=== PATIENT | female | born 1995 | race Caucasian/White ===

== ENCOUNTER 2022-12-25 09:09 | Emergency (ER) | payer OTHER, SELFPAY ==
--- NOTE | 2022-12-25 09:27 | ED.SKABFB ---
HPI - Skin/Abscess/Foreign Bdy General Chief complaint: Skin/Abscess/Foreign Body Stated complaint: Poision Angelika/[place] Time Seen by Provider: 12/25/22 09:24 Source: patient and RN notes reviewed History of Present Illness HPI narrative: 27 yo F presents to urgent care with complaints of an itchy rash. Pt states she was on a float trip this past weekend where she believes she came in contact with poison angelika or something of the like. Pt's rash started on Thursday on her right upper thigh and it continues to spread. Pt states she has tried OTC poison angelika meds, calamine lotion, and castor oil without relief. Denies any fevers, chills, vomiting, or SOB. Related Data Home Medications Medication Instructions Recorded Confirmed ascorbic acid (vitamin C) 1,000 mg 1 g PO DAILY 03/02/20 tablet cholecalciferol (vitamin D3) 125 125 mcg PO DAILY 03/02/20 mcg (5,000 unit) capsule magnesium oxide 400 mg PO DAILY 03/02/20 multivitamin with minerals 1 tablet PO DAILY 03/02/20 (Hair,Skin and Nails tablet) turmeric (bulk) 95 % powder ea miscellaneous 03/02/20 (Curcumin) zinc 50 mg tablet 50 mg PO DAILY 03/02/20 Allergies Allergy/AdvReac Type Severity Reaction Status Date / Time No Known Allergies Allergy Verified 12/25/22 09:30 Review of Systems Review of Systems: CONSTITUTIONAL: Denies fever, chills, or sweats. EYES: Denies visual changes, redness, or discharge. ENT: Denies otalgia and sore throat CARDIOVASCULAR: Denies chest pain, palpitations, or edema. RESPIRATORY: Denies cough or dyspnea. GASTROINTESTINAL: Denies abdominal pain, nausea, vomiting, or diarrhea. GENITOURINARY: Denies dysuria or hematuria. SKIN: itchy rash MUSCULOSKELETAL: Denies back pain, joint pain, or myalgia. NEUROLOGIC: Denies headache, numbness, or weakness. Pertinent positives per HPI. [facility] Surgical History Surgical History (Updated 03/02/20 @ 08:30 by Bishop Horvath CMA) Delivery by section Social History Social History (Updated 03/02/20 @ 08:31 by Bishop Horvath CMA) Smoking status: Never smoker Alcohol intake: never Substance use: never Comments At the time of my signature, I reviewed and agree with the nursing past medical, surgical, social, and family history. There is no relevant family history pertinent to the patient complaint. Exam Narrative: GENERAL: This is a well-nourished, well-developed patient, in no apparent distress. HEAD: normocephalic, atraumatic. EYES: Sclera clear/white. Vision is grossly intact. EARS: External ears normal, auditory canals clear and without drainage. Hearing grossly intact. NOSE: External nose normal with no obvious nasal discharge, nares without redness, no rhinorrhea. THROAT: Mucous membranes moist, posterior pharynx clear. NECK: Neck supple, non-tender without lymphadenopathy, masses or thyromegaly. CARDIOVASCULAR: Regular rate and rhythm without murmurs, gallops, or rubs. RESPIRATORY: Clear to auscultation. Breath sounds equal bilaterally. No wheezes, rales, or rhonchi. GASTROINTESTINAL: Abdomen soft, non-tender, nondistended. Bowel sounds are active. No hepato-splenomegaly, or palpable masses. No guarding. SKIN: erythremic patches and clusters of papules covering right lateral thigh with various, single, papules to other extremities. NEURO: awake, alert, and oriented to person, place and time. There were no obvious focal neurologic abnormalities. EXTREMITIES: No clubbing, cyanosis, or edema. No joint tenderness, effusion, or edema noted. BACK: Nontender without deformity or crepitus. No flank tenderness. Course Course Level of Care: Express Care Visit Vital Signs Vital signs: Reviewed MDM - Skin/Abscess/Foreign Bdy MDM Narrative Medical decision making narrative: Prevention is always better than treatment. Learn to identify poison angelika, oak, and sumac and avoid it. Wear long sleeves, long pants, shoes, and socks. If you touched the plant, try to rosales
[2022-12-25 09:28] VITALS: BP 112/62; PULSE 70; RESP 16; TEMP 37.1; O2SAT 100
== END 2022-12-25 09:42 | disposition home or self-care (01) ==
PROVIDERS: Emergency Provider Nurse Practitioner Family; PCP Family Medicine; Referring Provider Nurse Practitioner Family
DX: L25.9 Unspecified contact dermatitis, unspecified cause (principal)
CPT/HCPCS: 99203; G0463

== ENCOUNTER 2023-11-29 10:48 | Emergency (ER) | payer OTHER, SELFPAY ==
--- NOTE | ~2023-11-29 | XR_ITS ---
EXAMINATION: XR shoulder RT min 2V DATE: 11/29/2023 11:32 INDICATION: Right shoulder pain. Injury. TECHNIQUE: 4 views of right shoulder were obtained. COMPARISON: None. FINDINGS: Bone alignment is normal. No fracture. Glenohumeral joint is normal. There is mild acromioc lavicular joint osteoarthritis. IMPRESSION: 1. Mild right acromioclavicular joint osteoarthritis. Reviewed, dictated and finalized at location E.
[2023-11-29 11:05] VITALS: BP 107/71; PULSE 76; RESP 18; TEMP 36.6; O2SAT 99
--- NOTE | 2023-11-29 11:50 | ED.UPPEXIN ---
HPI - Extremity Injury (Upper) General Chief Complaint: Extremity Injury, Upper Stated Complaint: Right Shoulder Injury Time Seen by Provider: 11/29/23 11:20 Source: patient, family, RN notes reviewed and old records reviewed Mode of arrival: ambulatory Limitations: no limitations History of Present Illness HPI narrative: 28 year old female presents [facility] with complaints of injury to her right shoulder yesterday evening when she was on a slip and slide and slid into someone with her shoulder. Patient reports that she awoke last night with pain to her right shoulder and anterior aspect of shoulder along collar bone and reports that it feels swollen. Patient reports that she is right hand dominant. Patient describes pain as pressure and burning rates pain as 5/10, has been taking Ibuprofen for her discomfort. 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 MD complaint: injury to: right and shoulder Onset (ago): day(s) (last evening around 2029) Handedness: right Place: outdoors Severity scale (1-10): 5 Treatments prior to arrival: NSAIDS Related Data Allergies Allergy/AdvReac Type Severity Reaction Status Date / Time No Known Allergies Allergy Verified 11/29/23 11:11 Review of Systems Review of Systems: CONSTITUTIONAL: Denies fever, chills, or sweats. EYES: Denies visual changes, redness, or discharge. ENT: Denies rhinorrhea, congestion, sore throat, or otalgia. CARDIOVASCULAR: Denies chest pain, palpitations, or edema. RESPIRATORY: Denies cough or dyspnea. GASTROINTESTINAL: Denies abdominal pain, nausea, vomiting, or diarrhea. GENITOURINARY: Denies dysuria or hematuria. SKIN: Denies rash or itching. MUSCULOSKELETAL: Denies back pain,positive for right shoulder pain and pain along right clavicle area , or myalgia. NEUROLOGIC: Denies headache, numbness, or weakness. PSYCHIATRIC: Denies anxiety or depression. All systems reviewed & are unremarkable except as noted in HPI and below PMFSH Surgical History Surgical History Delivery by section Social History Social History Smoking status: Never smoker Alcohol intake: never Substance use: never Comments At time of signature, agree with nursing past medical, surgical, social and family history. There is no relevant family history pertinent to the presenting complaint Exam Narrative: GENERAL: Well-appearing, well-nourished, and in no acute distress. HEAD: Normocephalic, atraumatic. EYES: PERRLA and EOMI. ENT: Nares clear, no rhinorrhea or epistaxis. Mucous membranes moist.TM's normal throat pink with no swelling NECK: Supple. no lymphadenopathy CHEST: Clear to auscultation. No respiratory distress. no cough noted SAO2 99% on room air HEART: Regular rate and rhythm. No murmur heard. Normal peripheral pulses. ABDOMEN: Soft, nontender, nondistended, normal active bowel sounds. EXTREMITIES: Normal range of motion. No edema.Right shoulder tenderness at AC joint region and along anterior shoulder clavicle area. Patient has full mobility but with pain, pulses strong to right arm no tingling or numbness verbalized, Patient is right hand dominant. SKIN: Warm, dry, no rash. NEURO: No focal deficits. Alert and oriented x3. Course Course Emergency Course: Patient is aware of diagnosis, understands and agrees to treatment plan.? Anticipatory guidance given.? Patient agrees to follow-up as directed and is aware of reasons to seek care at the emergency department. Portions of this record may have been created with voice recognition software Level of Care: Express Care Visit Vital Signs Vital signs: Vital Signs Temperature 36.6 C 11/29/23 11:05 Pulse Rate 76 11/29/23 11:05 Respiratory Rate 18 11/29/23 11:05 Blood Pressure 107/71 11/29/23 11:05 Pulse Oximetry 99 11/29/23 11:05 Oxygen Delivery Room
== END 2023-11-29 12:20 | disposition home or self-care (01) ==
PROVIDERS: Emergency Provider Registered Nurse; PCP Family Medicine
DX: M25.511 Pain in right shoulder (principal)
CPT/HCPCS: 73030; 99213; G0463